=== PATIENT | female | born 1930 | race Caucasian/White ===

== ENCOUNTER 2018-11-11 13:12 | Inpatient (IN) | payer OTHER ==
[~2018-11-11] VITALS: Ht 149.9 cm; Wt 61.8 kg
--- NOTE | ~2018-11-11 | HC ---
[facility] [place] [address] CONSULTATION Name: APURVA BACH Room #: 454-P [facility] IN .R.#: [id number] Admission: 11/11/18 ������������������ Attend Phys: Walter Townsend MD Discharge: ������������������ Date of : 31 Report #: [id number] THIS REPORT FOR: //name// CC: PAT physician/PCP Walter Townsend DATE OF SERVICE: 11/16/2018 HISTORY OF PRESENT ILLNESS: This is an 87-year-old white female who has a history of diabetes mellitus type 2, hypertension, hyperlipidemia, who presented with multifocal blisters with multiple skin lesions. They apparently started as spots, which enlarged in size and became blisters. She was taking Tradjenta and this was discontinued a few days ago. She was treated with IV Solu-Medrol, is now transitioned over to prednisone. She was on IV vancomycin and is now on doxycycline. Blisters are improving. 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 She is also being monitored regarding renal insufficiency. We are seeing her in rehabilitation medicine consultation. PAST MEDICAL HISTORY: As noted above. She does have a history of diabetes, hypertension, hyperlipidemia. She is very hard of hearing. MEDICATIONS: Please see the full medication listing. ALLERGIES: PENICILLIN. HABITS: No history of tobacco or alcohol abuse. SOCIAL HISTORY: She lives in an assisted living facility. She uses a walker. No steps. REVIEW OF SYSTEMS: She did not offer any current complaints of chest pain, shortness of breath, or abdominal discomfort. PHYSICAL EXAMINATION: GENERAL: A pleasant 87-year-old female, very hard of hearing. She is in no distress. VITAL SIGNS: Last recorded temperature 97.2, pulse 76, respirations 17, blood pressure 162/81. NEUROLOGIC/MUSCULOSKELETAL: The patient is alert, follows basic 1 step commands. She appears to be a reasonable historian. Facies are symmetric. She does have multiple skin lesions, which appear to be former blisters over her upper thorax and shoulders. I did not examine her skin surface regarding these. I just reviewed her upper shoulder and upper thorax. As far as upper extremities, she has functional range of motion, strength is grade 4 to 4-/5. Lower extremities functional range of motion, strength is probably a grade 4-/5. She has done quite well with standby assistance with sit to stand and ambulated [facility] [address] [place] [address] CONSULTATION Name: BACHAPURVA Room #: 454-[facility] IN ..#: [id number] Admission: 11/11/18 ������������������ Attend Phys: Walter Townsend MD Discharge: ������������������ Date of : 31 Report #: [id number] 250 feet standby assistance with the 4-wheeled walker. She was able to don her socks in occupational therapy. ASSESSMENT: This 87-year-old white female with the following problem list: 1. Suspected bullous pemphigus. 2. ALLERGIC REACTION (TRADJENTA). 3. Diabetes mellitus type 2. 4. Renal insufficiency. 5. Hypertension. 6. Very hard of hearing. PLAN: The patient is actually too high level to warrant an acute 5-North inpatient rehabilitation stay. I know there is consideration for her returning directly back to her assisted living facility versus possibly going for a short long term facility stay. Case management is further assisting. ��������������������������������������������� ���������������������������������������� By: ��������������������������������������������� [id number] Kuldip Monterroso MD /nt
[2018-11-11 13:16] VITALS: BP 156/80
[2018-11-11] MEDS ORDERED: CARVEDILOL12.5 MG PO (13:28)
[2018-11-11 14:18] LABS: ABSOLUTE NEUTROPHILS 7.5 thou/uL (1.4-8.2); BASOPHILS 0.5 % (0.0-2.0); EOSINOPHILS 9.3 % (0.0-3.0); HEMATOCRIT 39.2 % (37.0-47.0); HEMOGLOBIN 12.7 gm/dL (12.0-15.0); LYMPHOCYTES 13.6 % (24.0-44.0); MCH 27.7 pg (26.0-34.0); MCHC 32.4 g/dL (28.0-37.0); MCV 85.5 fL (80.0-100.0); MONOCYTES 8.9 % (1.0-8.0); PLATELET COUNT 128 thou/uL (150-400); POLYS 67.7 % (36.0-66.0); RBC 4.58 mil/uL (4.20-5.00); RDW 14.6 % (10.5-14.5); WBC 11.1 thou/uL (4.0-11.0)
[2018-11-11 14:25] LABS: CALCIUM 9.7 mg/dL (8.5-10.1); CREATININE 1.7 mg/dL (0.6-1.0); POTASSIUM 4.2 mmol/L (3.5-5.1)
[2018-11-11 14:32] LABS: ALBUMIN 3.6 g/dL (3.4-5.0); TOTAL BILIRUBIN 0.5 mg/dL (<0.1-1.0); TOTAL PROTEIN 6.6 g/dL (6.4-8.2)
[2018-11-11 14:49] VITALS: BP 140/63
[2018-11-11] MEDS ORDERED: FISH OIL 1,001000 M2 PO (14:58)
[2018-11-11] MEDS ORDERED: TOVIAZ4 M1 PO (15:00)
[2018-11-11] MEDS ORDERED: LEVEMIR100 UNIT/1 SUBQ (15:02)
[2018-11-11] MEDS ORDERED: LASIX 20 MG TAB20 MG PO (15:02)
[2018-11-11] MEDS ORDERED: LISINOPRIL10 MG PO (15:03)
[2018-11-11] MEDS ORDERED: TRADJENTA5 MG PO (15:04)
[2018-11-11] MEDS ORDERED: ZOCOR20 MG PO (15:04)
[2018-11-11] MEDS ORDERED: VITAMIN D1000 UNI1 PO (15:07)
[2018-11-11] MEDS ORDERED: APAP650 PO (15:07)
[2018-11-11] MEDS ORDERED: VITAMIN D5000 UNIT PO (15:08)
[2018-11-11] MEDS ORDERED: RANITIDINE HCL300 M1 PO (15:08)
[2018-11-11] MEDS ORDERED: KLOR-CON 1010 MEQ PO (15:09)
[2018-11-11] MEDS ORDERED: NOVOLOG100 UNIT/1 SUBQ (15:10)
[2018-11-11] MEDS ORDERED: DOXYCYCLINE 10100 MG PO (15:10)
[2018-11-11] MEDS ORDERED: HYDROXYZINE HCL25 M1 PO (15:11)
--- NOTE | 2018-11-11 15:47 | NUR ---
PT RESIDES AT [facility] [place]. DR CHRIS BAKER REPORTED TO DR SAAVEDRA IN ER TODAY THAT PT HAS HAD SEVERE BLISTERING RASH ALL OVER BODY FOR APPROX ONE MONTH. NURSE AT [facility] STATED THAT TRAGENTA WAS DC'D 5 DAYS AGO AND IT IS THOUGHT THIS MAY HAVE CAUSED THE RASH. NURSE REPORTS PREDNISONE IS THE ONLY THING THAT HELPS WITH THE RASH BUT PRENISONE HAS BEEN RAISING BLOOD SUGARS FROM 600-700. NURSE REPORTS PT HAS LOST 15 POUNDS IN THE LAST 6 MONTHS AND HAS BEEN DECLINING SINCE RASH
[2018-11-11 15:51] LABS: URINE BILIRUBIN NEGATIVE (Negative); URINE BLOOD TRACE (Negative); URINE CLARITY CLEAR; URINE COLOR YELLOW; URINE GLUCOSE-RANDOM* NEGATIVE (Negative); URINE KETONES NEGATIVE (Negative); URINE LEUKOCYTES-REFLEX NEGATIVE (Negative); URINE NITRITE-REFLEX NEGATIVE (Negative); URINE PROTEIN (DIPSTICK) TRACE (Negative); URINE SPECIFIC GRAVITY 1.015 (1.005-1.035); URINE UROBILINOGEN 0.2 E.U./dl (0.2-1.0)
[2018-11-11 16:28] VITALS: BP 136/69
[2018-11-11 16:50] VITALS: BP 154/70
--- NOTE | 2018-11-11 17:45 | NUR ---
PT ARRIVED FROM ED 1645 FOR MEDICATION REACTION WITH BLISTERS AND OPEN BLISTERS COVERING HER UPPER AND LOWER EXTREMITIES, TORSO BOTH FRONT AND BACK. ADMISSION ASSESMENT AND HISTORY COMPLETED. FROM [facility], ALERT X4, VERY [place], PAIN 5/10 MANAGED WITH MEDICATIONS, FRONT WHEEL WALKER IN ROOM, PAINFUL TO AMBULATE DUE TO BLISTERS, WEARS A PULL UP. FALL PRECAUTIONS IN PLACE. ORIENTED TO CALL LIGHT. CONSULTS FOR DR ASHLEY, LATISHA, AND BOX NOTIFIED.
[2018-11-11 20:16] VITALS: BP 185/92
[2018-11-12 04:33] VITALS: BP 139/75
--- NOTE | 2018-11-12 04:53 | NUR ---
PATIENT ALERT AND ORIENTED X4. VERY [place]. UP TO BSC WITH MAX OF ONE ASSIST. REMAINS UNCOMFORTABLE WITH BLISTERS. MEDICATED PER ORDER AND PATIENT ABLE TO SLEEP OFF AND ON DURING THE NIGHT. BS MONITORED PER ORDER. IVF INFUSING W/O COMPLICATION. CONSULTS NOTIFIED BY AM NURSE. RESTING QUIETLY AT TIME OF NOTE. WILL MONITOR.
[2018-11-12 04:57] LABS: CREATININE 1.6 mg/dL (0.6-1.0); HEMATOCRIT 36.6 % (37.0-47.0); HEMOGLOBIN 12.2 gm/dL (12.0-15.0); MCH 28.5 pg (26.0-34.0); MCHC 33.2 g/dL (28.0-37.0); MCV 85.8 fL (80.0-100.0); POTASSIUM 4.4 mmol/L (3.5-5.1); RBC 4.26 mil/uL (4.20-5.00); RDW 14.7 % (10.5-14.5); WBC 8.3 thou/uL (4.0-11.0)
[2018-11-12 07:45] VITALS: BP 149/77
[2018-11-12 14:36] VITALS: BP 142/69
[2018-11-12 19:30] VITALS: BP 128/53
--- NOTE | 2018-11-12 19:30 | NUR ---
ASSUMED CARE OF PATIENT AT 0715, PATIENT ALERT AND ORIENTED X 4. PATIENT VERY HARD OF HEARING, NO HEARING AIDS. PATIENT DENIES PAIN THIS AM, BUT SEEMS UNCOMFORTABLE FROM ITCHING OVER BODY, DUE TO BLISTERS OVER BODY. THIS RN NOTIFIED DR CHAPIN OF PATIENT BEING UNCOMFORTABLE, RECEIVED ORDER FOR HYDROCODONE 5/325MG GIVEN X 1 THIS SHIFT, AND FENTANYL 50MCG GIVEN X 1 PRIOR TO BEING DISCONTINUED, WITH GOOD RELIEF. BLOOD SUGAR MONTITORING ORDERED AND INSULIN GIVEN SCHEDULED AND PER S/S. BED LINEN CHANGED, NO BM TODAY. PATIENT HAS RIGHT AC IV IN PLACE WITH NS AT 75CC/HR. PATIENT UP WITH ASSIST X 1 TO BSC, WILL CONTINUE TO MONITOR.
[2018-11-13 03:11] VITALS: BP 131/54
[2018-11-13 03:51] LABS: CALCIUM 8.7 mg/dL (8.5-10.1); CREATININE 1.6 mg/dL (0.6-1.0)
[2018-11-13 03:56] LABS: HEMATOCRIT 34.1 % (37.0-47.0); HEMOGLOBIN 11.2 gm/dL (12.0-15.0); MCHC 32.7 g/dL (28.0-37.0); MCV 85.6 fL (80.0-100.0); RBC 3.99 mil/uL (4.20-5.00); RDW 14.7 % (10.5-14.5); WBC 19.9 thou/uL (4.0-11.0)
[2018-11-13 08:00] VITALS: BP 155/66
--- NOTE | 2018-11-13 11:49 | NUR ---
ASSUMED CARE 0700.ALERT X4, [place], PAIN AND ITCHING MANAGED WITH MEDICATIONS. UP TO CHAIR WITH ASSISTANCE X1, APPLIED TOPICAL MEDICATIONS ON AREA BLISTERS PER ORDER. FALL PRECAUTION IN PLACE. STAFF TO ANTICIPATE NEEDS. NO BM AT THIS TIME. USES BEDSIDE COMMODE. CALL LIGHT IN REACH.
[2018-11-13 15:00] VITALS: BP 153/56
--- NOTE | 2018-11-13 16:23 | HC ---
[facility] [place] [place] [address] CONSULTATION Name: APURVA BACH Room #: 454-P [facility] IN .R.#: [id number] Admission: 11/11/18 ������������������ Attend Phys: Walter Townsend MD Discharge: ������������������ Date of : 31 Report #: [id number] THIS REPORT FOR: //name// CC: PTA physician/PCP Walter Townsend DATE OF SERVICE: 11/12/2018 CHIEF COMPLAINT: Bullous dermatitis. HISTORY OF PRESENT ILLNESS: This is an 87-year-old female patient who resides at a nursing care facility, with a history of type 2 diabetes mellitus. She was apparently recently started on Tradjenta and developed some blisters on her left upper arm and some of these areas have spread. The patient notes that they are painful and pruritic. The Tradjenta has been discontinued. She was treated with prednisone; her blood sugar ivanna and that was discontinued. She is now admitted for further evaluation and treatment. PAST MEDICAL HISTORY: The patient's past medical history is positive for history of type 2 diabetes mellitus; hypertension; some history of "heart problems", details not available at this time and hyperlipidemia. SOCIAL HISTORY: Negative for alcohol or tobacco use. FAMILY HISTORY: Noncontributory. REVIEW OF SYSTEMS: Difficult to obtain due to the patient's slowness or inability to answer all questions. Review of systems is essentially negative, other than that discussed in the history of present illness in a 14-point attempted review of systems. MEDICATIONS: The patient's current medications include Coreg; fish oil; Toviaz; Lasix; Levemir; Zestril; Tradjenta, now discontinued; Zocor; vitamin D; Tylenol; Klor-Con; NovoLog; doxycycline and hydroxyzine. ALLERGIES: PENICILLIN. PHYSICAL EXAMINATION: VITAL SIGNS: The patient's current vital signs include pulse 67, respiratory rate 15, blood pressure 142/69 and temperature 97.9. GENERAL: This is a chronically ill-appearing female patient, who appears to be in minimal distress. HEENT: Head normocephalic. Nose and throat clear. NECK: Supple. LUNGS: Clear. HEART: Regular rate and rhythm. [facility] [address] [place] [address] CONSULTATION Name: APURVA BACH Room #: 454-P [facility] IN .R.#: [id number] Admission: 11/11/18 ������������������ Attend Phys: Walter Townsend MD Discharge: ������������������ Date of : 31 Report #: [id number] ABDOMEN: Soft. Bowel sounds present. SKIN: Demonstrates bullous lesions that are predominantly involving the left upper arm area, but there are some on her chest and back, abdomen as well as lower legs. There is no evidence of infection at this time. NEUROLOGIC: The patient is alert, but somewhat disoriented and slow to answer questions. LABORATORY DATA: Includes sodium 139, potassium 4.4, chloride 105, CO2 of 23, BUN 32, creatinine 1.6 and glucose 248. Total protein 6.6 with an albumin of 3.6. White blood cell count 8.3 with a hemoglobin of 12.2, hematocrit of 36.6 and platelet count 120,000. Differential is 67% segmented neutrophils, 13% lymphocytes, 8% monocytes, 9% eosinophils and 0.5% basophils. CLINICAL IMPRESSION: 1. Bullous dermatitis involving the left upper extremity, trunk and lower legs. This could represent an allergic reaction to the Tradjenta. This also may be a bullous pemphigoid possibly triggered by newer medication. With her eosinophilia, certainly an allergic component would be suspected. 2. Acute renal insufficiency. 3. Type 2 diabetes mellitus. 4. Hypertension. RECOMMENDATIONS: At this point in time, the patient has been started on some IV Solu-Medrol, which I think is a good choice. We will recommend topical clobetasol cream to the bullous lesions. It would be I think worthwhile for Dermatology to see her. I think it would be helpful for her to have skin biopsies to evaluate the dermis for possible bullous pemphigoid. She will need ongoing nutritional support, although she seems to be nutritionally fairly well and intact. I appreciate being asked to see her in consultation. ��������������������������������������������� <ELECTRONICALLY SIGNED> ���������������������������������������� By: Cj Chatterjee MD ��������������������������������������������� 11/13/18 1623 [id number] [id number] Cj Chatterjee MD /nt
[2018-11-13 19:31] VITALS: BP 148/84
[2018-11-14 04:35] VITALS: BP 148/74
[2018-11-14 05:36] LABS: CALCIUM 8.5 mg/dL (8.5-10.1); CREATININE 1.4 mg/dL (0.6-1.0); POTASSIUM 3.9 mmol/L (3.5-5.1)
[2018-11-14 05:45] LABS: HEMATOCRIT 33.4 % (37.0-47.0); HEMOGLOBIN 11.1 gm/dL (12.0-15.0); MCH 28.4 pg (26.0-34.0); MCHC 33.3 g/dL (28.0-37.0); MCV 85.5 fL (80.0-100.0); RBC 3.9 mil/uL (4.20-5.00); RDW 14.9 % (10.5-14.5); WBC 16.9 thou/uL (4.0-11.0)
[2018-11-14 07:47] VITALS: BP 151/78
--- NOTE | 2018-11-14 08:00 | NUR ---
PROGRESS PT A/O X 3 TO 4 REPORTS PAIN LIKE SKIN [place] WHERE BLISTERS HAVE BROKEN, FEARFUL OF GETTING OUT OF CHAIR GAVE HYDROCODONE X 1 WITH EFFECT PT ABLE TO GET OUT OF CHAIR AND INTO BED WITHOUT TOO MUCH PAIN, SLEPT THROUGH OUT THE NIGHT CONTINUE POC.
--- NOTE | 2018-11-14 12:51 | NUR ---
ASSUMED CARE 0700. PROGRESSING TOWARDS GOALS. PT VOICED SHE FEELS BETTER. CONSULT FOR DERMATOGIST ORDERED. PT AND OT ROUNDED ON PATIENT.NO BM NOTED AT THIS TIME. FALL PRECAUTIONS IN PLACE. CALL LIGHT IN REACH. CONTINUE TO MONITOR
--- NOTE | 2018-11-14 14:49 | NUR ---
PT ADMITTED RELATED TO SUSPECTED MEDICATION REACTION. CM REVIEWED CHART AND SPOKE WITH CARE TEAM. CM MET WITH PT AT BEDSIDE THIS DAY. PT IS A&O X4 BUT [place]A BEAS[place]. CM ROLE INTRODUCED. PT INDICATED THAT SHE [facility]IV[facility] IN [facility] IN [facility]. SHE INDICATED SHE HAD USED A 4WW TO ASSIST WITH MOBILITY. PT INDICATED SHE PLANS TO RETURN TO HER [facility] FACILITY ONCE MEDICALLY STABLE. CM CALLED AND LEFT VOICMAIL FOR PT'S ELDA BACH. CM TO FOLLOW INDICATED WITH DC PLANNING.
[2018-11-14 14:51] VITALS: BP 169/71
[2018-11-14 20:14] VITALS: BP 156/74
--- NOTE | 2018-11-15 03:12 | NUR ---
ASSUMED CARE OF PT AT 1900HRS. PT AOX3 AND FOLLOWS DIRECTIONS APPROPIATELY. PT HAS MULTIPLE BLISTERS ALL OVER THE BODY AND SOME ARE OPEN. ITCHING HAS IMPROVE PER PT. PT WAS ABLE TO SLEEP PART OF THE SHIFT. NO OTHER S/S OF ACUTE DISTRESS. WILL CONTINUE TO MONITOR.
[2018-11-15 04:17] VITALS: BP 180/180
[2018-11-15 06:03] LABS: HEMATOCRIT 33.6 % (37.0-47.0); HEMOGLOBIN 11.1 gm/dL (12.0-15.0); MCH 28.2 pg (26.0-34.0); MCV 85.6 fL (80.0-100.0); RBC 3.92 mil/uL (4.20-5.00); RDW 14.8 % (10.5-14.5); WBC 13.3 thou/uL (4.0-11.0)
[2018-11-15 06:30] LABS: CALCIUM 8.6 mg/dL (8.5-10.1); CREATININE 1.5 mg/dL (0.6-1.0); POTASSIUM 3.9 mmol/L (3.5-5.1)
[2018-11-15 06:51] VITALS: BP 158/80
[2018-11-15 06:58] VITALS: BP 158/80
--- NOTE | 2018-11-15 11:00 | NUR ---
ASSUMED CARE OF PT APPROX 0715, A&0X3, SLIGHTLY [place], AMB W/ONE CLOSE SBA AND WALKER, BLISTERS AND OPEN AREAS SCATTERED ALL OVER BODY, TOO NUMEROUS TO COUNT. APPLIED RX CREAM AND ORDERED MORE THIS TUBE WAS ALMOST OUT. PT HAS ADVENTITIOUS EXPIRATORY BREATH SHOUNDS, ENCOURAGED HER IN THE INTERIM TO REMEMBER TO DO HER DEEP SLOW BREATHING WHENEVER SHE CAN REMEMBER. WILL CONTINUE TO MONITOR
--- NOTE | 2018-11-15 12:19 | NUR ---
SMOKE EATER PERFORMED BX ON LEFT UPPER THIGH, STITCHED FOUR STRIPS, AND SAID TO APPLY BANDAID AFTER BATHS, AND AVOID PUTTING CREAM ON SITE. WILL NEED STITCHES REMOVED IN TEN DAYS, GAVE HER A CARD. SHE TOLERATED PROCEDURE WELL
--- NOTE | 2018-11-15 12:23 | NUR ---
DERMATOLOGY CONSULT: PT IS 88 YO FEMALE WITH A THREE WEEKS HX OF A GENERALIZED BOLUS ERUPTION WITH ERYTHEMATOUS BASE AND MODERATE ITCHING. BX TAKEN FROM L ANTERIOR THIGH IN TWO PIECES, ONE FOR DIF AND ANOTHER FOR ROUTINE BX, WORKING DX: BULOUS PHEMPHAGOID. PT HAS BEEN HAVING CLOBETASOL CREAM APPLIED DAILY W/SLIGHT IMPROVEMENT. WILL WRITE ORDER FOR DOXYCYCLINE 100 MG BID PO AND NIACIDIMIDE CAPSULE 500 MG BID PO A THERAPEUTIC TRIAL OVER THE NEXT FOUR WEEKS OR LONGER. PT TO HAVE BX SUTURES REMOVED IN TWO WEEKS BY COMING IN TO THE OFFICE WITHIN THE NEXT TWO WEEKS. OFFICE BUSINESS CARD GIVEN TO PT TO ARRANGE VISIT FOR FOLLOW UP. DICTATED BY DR. ASIF VIDAL
[2018-11-15 14:25] VITALS: BP 148/75
--- NOTE | 2018-11-15 15:51 | NUR ---
discharge planning: dp sent referral to [facility] fax [phone]. Possible discharge tomorrow.
--- NOTE | 2018-11-15 15:54 | NUR ---
PT WAS SEEN BY DERMATOLOGY. CARE TEAM IS INDICATING POSSIBLE DC TOMORROW. CM CALLED HER AL FACILITY [facility] AND CLINICAL UPDATE TO BE FAXED . CM CALLED PT'S BROTHER AND HE INDICATED THAT HIS NIECE WOULD BE ABLE TO PROVIDE TRANSPORT BACK TO THE FACILITY ONCE SHE'S READY. CM TO FOLLOW INDICATED WITH DC PLANNING.
--- NOTE | 2018-11-15 16:01 | NUR ---
WOUND CARE FOLLOW UP; MIKAL[place] TODAY WITH DR MILLER AND SUDHA SYRUP MIXER HELPER. PATIENT AWAITING A DERMATOLOGY CONSULT. LESIONS REMAIN UNCHANGED. CONTINUE CURRENT PLAN DISCUSSED WITH FITO
[2018-11-15 19:45] VITALS: BP 154/56
--- NOTE | 2018-11-16 03:46 | NUR ---
ASSUMED CARE OF PT AT 1900 HRS. PT IS AOX3 AND WAS ABLE TO SLEEP PART OF THE SHIFT. PT SAT ON THE RECLINER MOST OF THE SHIFT. NO S/S OF ACUTE DISTRESS. WILL CONTINUE TO MONITOR.
[2018-11-16 04:30] VITALS: BP 157/58
[2018-11-16 05:36] LABS: HEMOGLOBIN 12.2 gm/dL (12.0-15.0); MCH 28.1 pg (26.0-34.0); MCHC 32.9 g/dL (28.0-37.0); MCV 85.6 fL (80.0-100.0); RBC 4.33 mil/uL (4.20-5.00); WBC 12.8 thou/uL (4.0-11.0)
[2018-11-16 05:54] LABS: CALCIUM 8.5 mg/dL (8.5-10.1); CREATININE 1.3 mg/dL (0.6-1.0); MAGNESIUM 1.5 mg/dL (1.8-2.4)
[2018-11-16 07:45] VITALS: BP 146/79
[2018-11-16 13:49] VITALS: BP 162/81
--- NOTE | 2018-11-16 14:16 | NUR ---
WOUND CARE FOLLOW UP; ROUNDING TODAY WITH DR REYES MILLER. THE LESIONS SHOW SOME IMPROVEMENT. CONTINUE CURRENT TREATMENT. DISCUSSED WITH FITO
--- NOTE | 2018-11-16 16:24 | NUR ---
CARE TEAM INDICATED THAT PT WILL NEED TO DC ON STEROID TAPER. IT WAS INDICATED THAT PT WOULDN'T BE ABLE TO FOLLOW TAPER. RIC CALLED PT'S FACILITY [facility] AND IT WAS INDICATED THAT PT RESIDES IN [place] AND THAT SHE HAS NURSES SERVICES. RIC SPOKE WITH THE ONLY NURSE MADHAV AND SHE INDICATED THAT THEY ADMINISTER PT'S MEDS. SHE STATED THAT SHE HAD BEEN ON STEROIDS PREVIOUSLY AND THAT HE BLOOD SUGARS HAD BEEN REALLY HIGH. SHE INDICATED SHE IS CONCERNED ABOUT PT RETURNING HOME ON THEM AGAIN AND THE MED TECS MANAGING HER BLOOD SUGARS. SHE INDICATED SHE WOULD BE MORE COMFORTABLE WITH PT GOING SKILLED UPON DC. 5N LOOKED AT PT BUT INDICATED THAT PT IS TOO HIGH LEVEL FOR THEM. RIC CALLED AND SPOKE WITH PT'S DPOA AND INDICATED THAT ABOVE AND ASKED IF THEY WANTED PT TO GO SKILLED NEAR [facility] OR IN . HE DIRECTED CM TO ASK PT WHERE SHE WANTED TO GO. CM ATTEMPTED VISIT BUT NURSE WAS FIXING IV. CM TO FOLLOW UP WITH DC PLANNING.
--- NOTE | 2018-11-16 19:28 | NUR ---
ASSUMED CARE OF PATIENT AT 0715, PATIENT ALERT AND ORIENTED X 3-4. PATIENT C/O PAIN WITH LEFT LEG, BIOPSY DONE YESTERDAY, BANDAID IN PLACE, PATIENT GIVEN HYDROCODONE 1 TABLET THIS AM, WITH PARTIAL RELIEF. PATIENT IV RIGHT FOREARM , NOT GOOD, CALLED IV TEAM FOR ASSISTANCE, RIGHT FOREARM IV PLACE, HARD TO FLUSH, AND BECAME NOT PATENT, IV TEAM CALLED AGAIN, DUE TO VERY HARD STICK, TIANA/IV TEAM PLACE RIGHT UPPER ARM MIDLINE, IV FLUIDS CONTINUE, NS AT 75CC/HR. ANF PATIENT RECEIVED 1 DOSE OF MAGNESIUM 2G, DUE TO MAGNESIUM LEVEL 1.5. PATIENT CONTUNUES TO HAVE BLISTERS OVER BODY, STERIOD CREAM APLLIED OVER BODY. BLOOD SUGAR MONITORING ORDERED, SCHEDULED AND S/S INSULIN GIVEN PER BLOOD SUGAR. PATIENT VERY HARD OF HEARING. PATIENT UP WITH ASSIST X 1 WITH GAIT BELT AND WALKER, FALL PRECAUTIONS IN PLACE. WILL CONTINUE TO MONITOR.
[2018-11-16 20:25] VITALS: BP 163/81
--- NOTE | 2018-11-17 03:09 | NUR ---
ASSUMED CARE OF PT AT 1900HRS. PT IS AOX3 AND SLEPT MOST OF THE SHIFT. FALL PRECAUTION IN PLACE. NO S/S OF ACUTE DISTRESS. WILL CONTINUUE TO MONITOR
[2018-11-17 03:45] VITALS: BP 154/81
--- NOTE | 2018-11-17 06:25 | NUR ---
progress took report at 4 am pt sleeping, call light in reach bed alarm on.
[2018-11-17 07:25] VITALS: BP 149/71
--- NOTE | 2018-11-17 09:49 | NUR ---
Nutrition: assess d/t LOS. Pt admitted following suspected medication reaction. Pt is [place]. Was eating breakfast during visit with about 25% eaten so far. She appeared very slow at eating. She reports her appetite is doing okay. No new weight since 11/11. Recommend obtaining new weight. Otherwise, consider low risk at this time.
--- NOTE | 2018-11-17 14:09 | NUR ---
DISCHARGE PLANNING. POST ACUTE CARE RECOMMENDED AT DISCHARGE. REFERRAL FAXED TO [facility], PER PATIENT REQUEST. UNIT SW SPOKE WITH [facility] RODRIG[facility] SL ADMISSIONS, TO NOTIFY OF REFERRAL. PATIENT IS READY FOR DISCHARGE. WILL FACILITATE DC ONCE FACILITY NOTIFIES CM OF ACCEPTANCE AND ONCE DISCHARGE ORDERS HAVE BEEN COMPLETED PER ATTENDING. FOLLOWING TO ASSIST WITH DISCHARGE.
--- NOTE | 2018-11-17 14:42 | NUR ---
WOUND CARE FOLLOW UP; ROUNDING WITH SUDHA DAVILA PROCESSING OPERATOR. LIMITED ASSESSMENT WAS POSSIBLE TODAY. PATIENT EMOTIONALLY UNSTABLE, CRYING UNCONSOLABLE. RECOMMENDATIONS; CONTINUE CURRENT PLAN OF CARE. DISCUSSED WITH RN
[2018-11-17 15:28] VITALS: BP 147/81
[2018-11-17] MEDS ORDERED: CLOBETASOL PROP15 GM TOP (16:45)
[2018-11-17] MEDS ORDERED: PREDNISONE 10 M10 MG PO (16:45)
[2018-11-17] MEDS ORDERED: NIACIN500 M2 PO ×2 (16:49→16:50)
[2018-11-17] MEDS ORDERED: PROBIOTIC1 EAC1 PO (16:50)
--- NOTE | 2018-11-17 17:10 | NUR ---
CARE TEAM INDICATED THAT PT IS MEDICALLY STABLE TO DC THIS DAY. CM HAD SPOKEN WITH PT AND HER BROTHER/MOISESO EVA WELL DR. MCKNIGHT WHO RECOMMENDED THAT REFERRAL BE SENT TO [facility] AT [address] [place] [address]. REFERRAL WAS SENT CM SPOKE WITH MICHAEL IN ADMISSIONS AND THEY INDICATED THAT THEY ARE ABLE TO ACCEPT HER FOR ADMISSION. PT AND DPOA ARE AWARE AND AGREEABLE. CHART COPY MADE AND ORDRES FAXED. WHEELCHAIR [facility]AN [facility] WAS ARRANGED VIA [facility] BETWEEN [phone]. REPORT TO BE CALLED TO . CM NOTIFIED NURSE AT HER [place] FACILITY [facility]. NO OTHER CM INTERVENTION INDICATED AT THIS TIME. CASE CLOSED.
[2018-11-17 17:34] VITALS: BP 147/81
== END 2018-11-17 18:30 | DRG 595 ==
LOC: ER 13:12 → 4W 15:38 → EROBS 15:38 → 4W 16:35
PROVIDERS: Emergency Medicine; Internal Medicine; ADMIT Hospitalist
DX: L12.0 Bullous pemphigoid (principal); N17.0 Acute kidney failure with tubular necrosis; E10.22 Type 1 diabetes mellitus with diabetic chronic kidney disease; T50.995A Adverse effect of other drugs, medicaments and biological substances, initial encounter; E10.65 Type 1 diabetes mellitus with hyperglycemia; T38.0X5A Adverse effect of glucocorticoids and synthetic analogues, initial encounter; D72.829 Elevated white blood cell count, unspecified; I12.9 Hypertensive chronic kidney disease with stage 1 through stage 4 chronic kidney disease, or unspecified chronic kidney disease; F03.90 Unspecified dementia, unspecified severity, without behavioral disturbance, psychotic disturbance, mood disturbance, and anxiety; N18.9 Chronic kidney disease, unspecified; E78.5 Hyperlipidemia, unspecified; Z79.84 Long term (current) use of oral hypoglycemic drugs; Z88.0 Allergy status to penicillin; Y92.89 Other specified places as the place of occurrence of the external cause; Z88.8 Allergy status to other drugs, medicaments and biological substances
CPT/HCPCS: 10040; 27000